=== PATIENT | female | born 1955 | race Caucasian/White ===

== ENCOUNTER 2020-08-16 19:27 | Emergency (ER) | payer MEDICAID, OTHER ==
[2020-08-16 19:58] VITALS: BP 154/68; PULSE 63
--- NOTE | 2020-08-16 20:07 | EDM.PDOC ---
ED HPI GENERAL MEDICAL PROBLEM - General Chief Complaint: Chest Pain Stated Complaint: CHEST PAINS Time Seen by Provider: 08/16/20 19:55 Source of Information: Reports: Patient, Old Records, RN History Limitations: Reports: No Limitations - History of Present Illness INITIAL COMMENTS - FREE TEXT/NARRATIVE: 65 yo female here with central sternal pain all day that does not fluctuate with anything she does. She had some L axillary pain last night that resolved after ASA and later when she awoke this AM she had the sternal area pressure. No fever or SOB. No self tx. No calf pain or LE edema. No personal hx of CAD, but her father had CAD. Onset: Today Onset Date: 08/16/20 Duration: Hour(s):, Constant Location: Reports: Chest Quality: Reports: Pressure (mild) Severity: Mild Improves with: Reports: None Worsens with: Reports: Other (coughing) Context: Reports: Other (See HPI) Associated Symptoms: Reports: Chest Pain. 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: Musculoskeletal History: Reports: Arthritis, Gout Endocrine/Metabolic History: Reports: Diabetes, Type II, Other (See Below) Other Endocrine/Metabolic History: check blood sugar once in am, usually 110mg/dcl put on medication Dermatologic History: Reports: Other (See Below) Other Dermatologic History: rosacea - Infectious Disease History Infectious Disease History: Reports: Chicken Pox, Influenza, Measles - Past Surgical History GI Surgical History: Reports: Appendectomy Neurological Surgical History: Reports: Laminectomy Other Neurological Surgeries/Procedures: l5 Musculoskeletal Surgical History: Reports: Joint Replacement Other Musculoskeletal Surgeries/Procedures:: R knee 1 yr ago Social & Family History - Tobacco Use Tobacco Use Status *Q: Never Tobacco User - Caffeine Use Caffeine Use: Reports: None - Recreational Drug Use Recreational Drug Use: No ED ROS GENERAL - Review of Systems Review Of Systems: See Below Constitutional: Reports: No Symptoms HEENT: Reports: No Symptoms Respiratory: Reports: No Symptoms Cardiovascular: Reports: Chest Pain GI/Abdominal: Reports: No Symptoms : Reports: No Symptoms Musculoskeletal: Reports: No Symptoms Skin: Reports: No Symptoms Neurological: Reports: No Symptoms ED EXAM, GENERAL - Physical Exam Exam: See Below Exam Limited By: No Limitations General Appearance: Alert, WD/WN, No Apparent Distress, Obese Eye Exam: Bilateral Eye: Normal Inspection Ears: Normal External Exam, Normal Canal, Hearing Grossly Normal Ear Exam: Bilateral Ear: Auricle Normal, Canal Normal Nose: Normal Inspection, No Blood Throat/Mouth: Normal Inspection, Normal Lips, Normal Oropharynx, Normal Voice, N o Airway Compromise Head: Atraumatic, Normocephalic Neck: Normal Inspection Respiratory/Chest: No Respiratory Distress, Lungs Clear, Normal Breath Sounds, No Accessory Muscle Use. No: Chest Non-Tender (tenderness on palpation along right border of the sternum) Cardiovascular: Regular Rate, Rhythm, No Edema GI/Abdominal: Normal Bowel Sounds, Soft, Non-Tender, No Distention Back Exam: Normal Inspection. No: CVA Tenderness (R), CVA Tenderness (L) Extremities: Normal Inspection, Normal Range of Motion, Non-Tender, No Pedal Edema Neurological: Alert, Oriented, CN II-XII Intact, Normal Cognition, No Motor/Sensory Deficits Psychiatric: Normal Affect, Normal Mood Skin Exam: Warm, Dry, Intact, Normal Color, No Rash #1 Interpretation EKG Date: 08/16/20 Time: 19:45 Rhythm: NSR Rate (Beats/Min): 68 [place]: Normal P-Wave: Present QRS: Normal ST-T: Normal QT: Normal Comparison: NA - No Prior EKG Course - Vital Signs Last Recorded V/S: Last Vital Signs Temp Pulse 63 08/16/20 19:57 Resp 20 08/16/20 19:57 BP 154/68 H 08/16/20 19:57 Pulse Ox 95 08/16/20 19:57 - Orders/Labs/Meds Orders: Active Orders 24 hr Category Date Time Status Cardiac Monitoring [RC] .As Directed Care 08/16/20 19:30 Active EKG Documentation Completion [RC] ASDIRECTED Care 08/16/20 19:30 Active Meloxicam [Mobic] Med 08/16/20 21:00 Active 7.5 mg PO DAILY EKG 12 Lead [EK] Routine Ther 08/16/20 19:30 Ordered Medication Orders Meloxicam (Meloxicam 7.5 Mg Tab) 7.5 mg PO DAILY ALIA Labs: Laboratory Tests 08/16/20 Range/Units 20:13 Sodium 144 (140-148) mmol/L Potassium 4.6 (3.6-5.2) mmol/L Chloride 104 (100-108) mmol/L Carbon Dioxide 28 (21-32) mmol/L Anion Gap 11.6 (5.0-14.0) mmol/L BUN 20 H (7-18) mg/dL Creatinine 1.1 H (0.6-1.0) mg/dL Est Cr Clr Drug Dosing 48.37 mL/min Estimated GFR (MDRD) 50 L (>60) Glucose 143 H (74-106) mg/dL Calcium 10.1 (8.5-10.1) mg/dL Troponin I < 0.017 (0.000-0.056) ng/mL Meds: Medications Generic Name Dose Route Start Last Admin Trade Name Freq PRN Reason Stop Dose Admin Meloxicam 7.5 mg 08/16/20 21:00 Meloxicam 7.5 Mg Tab PO DAILY ALIA Discontinued Medications Generic Name Dose Route Start Last Admin Trade Name Freq PRN Reason Stop Dose Admin Ketorolac Tromethamine 60 mg 08/16/20 20:04 08/16/20 20:17 Ketorolac 60 Mg/2 Ml Sdv IM 08/16/20 20:05 60 mg ONETIME ONE Administration Departure - Departure Time of Disposition: 21:10 Disposition: Home, Self-Care 01 Clinical Impression: Costochondral junction syndrome, Elevated blood sugar Prescriptions: Meloxicam 7.5 mg PO BID #25 tablet Instructions: Costochondritis, [id number] Referrals: Eliana Vergara DO [Primary Care Provider] - Forms: ED Department Discharge Additional Instructions: Take meloxicam every 12 hrs, next dose after 2 am tonight. Also, take acetaminophen up to 1000 mg every 6 hrs as needed for pain relief. Recheck with your doctor by Saturday if not improving. Return here if worse. Sepsis Event Note (ED) - Evaluation Sepsis Screening Result: No Definite Risk - Focused Exam Vital Signs: Vital Signs Pulse Resp BP Pulse Ox 08/16/20 19:57 63 20 154/68 H 95 - My Orders Last 24 Hours: My Active Orders 08/16/20 19:30 Cardiac Monitoring [RC] .As Directed EKG Documentation Completion [RC] ASDIRECTED EKG 12 Lead [EK] Routine 08/16/20 21:00 Meloxicam [Mobic] 7.5 mg PO DAILY - Assessment/Plan Last 24 Hours: My Active Orders 08/16/20 19:30 Cardiac Monitoring [RC] .As Directed EKG Documentation Completion [RC] ASDIRECTED EKG 12 Lead [EK] Routine 08/16/20 21:00 Meloxicam [Mobic] 7.5 mg PO DAILY
[2020-08-16] MEDS: Ketorolac 60 MG/2 ML SDV IM ONE ×2 (20:15→20:17)
[2020-08-16] MEDS ORDERED: Meloxicam 7.5 MG Tab PO SCH (21:00)
== END 2020-08-16 21:16 | disposition home or self-care (01) ==
LOC: JP.ED 19:27
DX: M94.0 Chondrocostal junction syndrome [Tietze] (principal); E11.65 Type 2 diabetes mellitus with hyperglycemia; M10.9 Gout, unspecified; Z79.82 Long term (current) use of aspirin; Z79.84 Long term (current) use of oral hypoglycemic drugs; Z79.899 Other long term (current) drug therapy
CPT/HCPCS: 36415; 80048; 84484; 93005; 96372; 99283; 99285; A9270; J1885